=== PATIENT | female | born 1945 | race Asian ===

== ENCOUNTER 2023-10-03 17:09 | Emergency (ER) | payer BC, MEDICARE ==
[~2023-10-03] VITALS: Ht 152.4 cm; Wt 45.4 kg
[2023-10-03] MEDS ORDERED: ACET325C7 PO (17:59)
[2023-10-03] MEDS ORDERED: DOCU-141 PO (17:59)
[2023-10-03] MEDS ORDERED: MONT10TA22 PO (17:59)
[2023-10-03] MEDS ORDERED: METF-440 PO (17:59)
[2023-10-03] MEDS ORDERED: LOVA40TA2 PO (17:59)
[2023-10-03] MEDS ORDERED: FLEET ENEMA 133 ML BOTTLE RC ONE (18:14)
[2023-10-03] MEDS: FLEET ENEMA 133 ML BOTTLE RC ONE (18:14)
[2023-10-03 18:59] VITALS: BP 135/67; TEMP 98.3; O2SAT 98
== END 2023-10-03 19:00 | disposition home or self-care (01) ==
LOC: ER 17:30
DX: R33.9 Retention of urine, unspecified (principal); K59.03 Drug induced constipation; T40.2X5A Adverse effect of other opioids, initial encounter; E11.9 Type 2 diabetes mellitus without complications; Z79.1 Long term (current) use of non-steroidal anti-inflammatories (NSAID); Z79.899 Other long term (current) drug therapy; Z79.84 Long term (current) use of oral hypoglycemic drugs; Z91.040 Latex allergy status; Y92.89 Other specified places as the place of occurrence of the external cause
CPT/HCPCS: 51702; A4606; A4663